=== PATIENT | male | born 1985 | race Caucasian/White ===

== ENCOUNTER 2017-12-04 08:42 | Emergency (ER) | payer OTHER ==
[2017-12-04] MEDS ORDERED: Acetaminophen 500 MG Tab PO ONE (08:54)
--- NOTE | 2017-12-04 09:42 | EDM.PDOC ---
ED HPI GENERAL MEDICAL PROBLEM - General Chief Complaint: Upper Extremity Injury/Pain Stated Complaint: HAND Time Seen by Provider: 12/04/17 08:51 Source of Information: Reports: Patient History Limitations: Reports: No Limitations - History of Present Illness INITIAL COMMENTS - FREE TEXT/NARRATIVE: Patient in for evaluation after striking his left hand with a hammer at work. Works at [employer]. He can move the hand, has no weakness or circulation complaints. NO further complaints. Bruise and swelling to left hand. 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 [No Known Home Meds] 12/04/17 [History] Past Medical History - Past Surgical History GI Surgical History: Reports: Cholecystectomy Social & Family History - Tobacco Use Smoking Status *Q: Never Smoker - Alcohol Use Days Per Week of Alcohol Use: 1 Number of Drinks Per Day: 1 Total Drinks Per Week: 1 - Recreational Drug Use Recreational Drug Use: No Review of Systems - Review of Systems Review Of Systems: See Below Constitutional: Reports: No Symptoms Eyes: Reports: No Symptoms Ears: Reports: No Symptoms Nose: Reports: No Symptoms Mouth/Throat: Reports: No Symptoms Respiratory: Reports: No Symptoms Cardiovascular: Reports: No Symptoms GI/Abdominal: Reports: No Symptoms Genitourinary: Reports: No Symptoms Musculoskeletal: Reports: Hand Pain Skin: Reports: Bruising, Other (left hand swelling) Neurological: Reports: No Symptoms Psychiatric: Reports: No Symptoms ED EXAM, GENERAL - Physical Exam Exam: See Below Exam Limited By: No Limitations General Appearance: Alert, WD/WN, No Apparent Distress Extremities: Normal Range of Motion, Normal Capillary Refill, Other (full and complete range of motion to hand with no pain on movement) Neurological: Alert, Oriented, CN II-XII Intact, Normal Cognition, Normal Gait, Normal Reflexes, No Motor/Sensory Deficits Skin Exam: Ecchymosis, Other (swelling to left hand) Course - Vital Signs Last Recorded V/S: Last Vital Signs Temp 36.6 C 12/04/17 08:44 Pulse 103 H 12/04/17 08:44 Resp 18 12/04/17 08:44 BP 168/97 H 12/04/17 08:44 Pulse Ox - Orders/Labs/Meds Orders: Active Orders 24 hr Category Date Time Status Hand Comp Min 3V Lt [CR] Stat Exams 12/04/17 08:53 Ordered Meds: Medications Discontinued Medications Generic Name Dose Route Start Last Admin Trade Name Marichuy PRN Reason Stop Dose Admin Acetaminophen 1,000 mg 12/04/17 08:54 12/04/17 08:58 Tylenol Extra Strength PO 12/04/17 08:55 1,000 mg ONETIME ONE Administration Departure - Departure Time of Disposition: 09:51 Disposition: Home, Self-Care 01 Condition: Good Clinical Impression: Contusion of left hand - Discharge Information *PRESCRIPTION DRUG MONITORING PROGRAM REVIEWED*: Not Applicable *COPY OF PRESCRIPTION DRUG MONITORING REPORT IN PATIENT REMA: Not Applicable Instructions: Contusion, [id number] Additional Instructions: Keep the wrap on for the next few days. Keep the dressing clean and dry. This will help reduce swelling. Use ice to reduce swelling and decrease pain. Apply for 20 minutes at a time. Do not apply ice directly to skin. May also keep your hand elevated above your heart when you are able. This will also reduce swelling. Alternate tylenol and ibuprofen for pain control. Please call with any questions or concerns. - Problem List & Annotations (1) Contusion of left hand SNOMED Code(s): 5727663 Code(s): S60.222A - CONTUSION OF LEFT HAND, INITIAL ENCOUNTER Status: Acute Priority: Low Current Visit: Yes Qualifiers: Encounter type: initial encounter Qualified Code(s): S60.222A - Contusion of left hand, initial encounter - Problem List Review Problem List Initiated/Reviewed/Updated: Yes - My Orders Last 24 Hours: My Active Orders 12/04/17 08:53 Hand Comp Min 3V Lt [CR] Stat - Assessment/Plan Last 24 Hours: My Active Orders 12/04/17 08:53 Hand Comp Min 3V Lt [CR] Stat Assessment:: left hand contusion Plan: Keep the wrap on for the next few days. Keep the dressing clean and dry. This will help reduce swelling. Use ice to reduce swelling and decrease pain. Apply for 20 minutes at a time. Do not apply ice directly to skin. May also keep your hand elevated above your heart when you are able. This will also reduce swelling. Alternate tylenol and ibuprofen for pain control. Please call with any questions or concerns.
== END 2017-12-04 09:53 | disposition home or self-care (01) ==
LOC: VM.ED 08:42
DX: S60.222A Contusion of left hand, initial encounter (principal); W22.8XXA Striking against or struck by other objects, initial encounter
CPT/HCPCS: 73130-LT; 99283; A9270-GY